=== PATIENT | male | born 1965 | race Caucasian/White ===

== ENCOUNTER 2024-10-21 10:47 | Emergency (ER) | payer BC, SELFPAY ==
[2024-10-21 10:48] VITALS: BP 156/106; PULSE 80; RESP 16; TEMP 36.8; O2SAT 99; BMI 31.5
--- NOTE | 2024-10-21 11:55 | EDS_ITS ---
HPI History of Present Illness Chief Complaint: Nosebleed Informant: patient Narrative Narrative: Spontaneous nosebleed that started about 3 hours ago. Stopped at 1 point but then restarted. He cannot tell if when he was holding pressure was helping. He states when he was doing it he felt like blood was building up inside of his head. He was swallowing some blood. He was also tilting his head back. He thinks when he for started noticing blood running out of his nose it was on the right side, but other than that he has bleeding out of both sides at the same time every time. No systemic symptoms. No blood thinners. No recent cold symptoms or blowing his nose or injury. PFSH PFSH Medical History no medical history no medical history Home Medications ?Medication ?Instructions ?Recorded ?Last Taken ?Type NK 10/21/24 Unknown History Allergy/AdvReac Type Severity Reaction Status Date / Time codeine Allergy Vomiting Verified 10/21/24 10:50 Social History Smoking Status: Current every day smoker tobacco type: cigarettes ROS ROS ED Constitutional Constitutional ED: Denies chills or fever(s) ENT ENT ED: Reports epistaxis; Denies facial pain Cardiovascular Cardiovascular: Denies chest pain, lightheadedness or syncope Respiratory/Chest Respiratory/Chest: Denies cough EXAM Physical Exam Const Vital Signs: 10/21/24 10:48 10/21/24 13:56 10/21/24 13:56 Temperature 98.2 F 98.0 F Temperature Source Temporal Pulse Rate 80 63 63 Respiratory Rate 16 18 18 Blood Pressure 156/106 H 140/82 H 140/82 H Blood Pressure Mean 122 101 101 Pulse Ox 99 97 97 Oxygen Delivery Method Room Air Room Air Positive well nourished and well developed General Appearance ED: well developed and NAD HEENT Reports moist mucous membranes HEENT Narrative: No active bleeding. No blood in the posterior pharynx or active bleeding. There is residual blood at the right nasal septum, possible pinpoint source but not actively bleeding, nothing on the left. Patient is able to breathe and move air well through each naris. normocephalic and atraumatic Eyes PERRL and EOMs intact bilaterally Neck full ROM and supple Resp normal respiratory effort and clear to auscultation bilaterally Cardio regular rate, regular rhythm and no murmurs Back/Spine General Back: other FROM Extremity normal to inspection Neuro oriented x3, CN's II-XII intact bilaterally and no sensory deficits noted Sensorium / Orientation: awake and alert Motor Exam: strength 5/5 throughout Skin no rashes or lesions noted and no wounds MDM MDM MDM Narrative Medical decision making narrative: Blood pressure in the 150s he states this is high for him, however I am not sure this is high enough to have caused his acute nosebleed. He is on no antiplatelet or anticoagulants. He had no recurrence of active bleeding while in the emergency department. I did instill 1 cc each nostril of Itzel solution, followed by a pledget into the right naris which was more suspect than the left side. This is not acting like a posterior bleed. On reexamination after 20 minutes of this, there is no active bleeding, the left side is clear, there is a prominent blood vessel in the anterior right septum that does not appear having had recent bleeding, but there is an area more posterior along the septum that is a little on the white discoloration with a part of it that looks like maybe it was because. Therefore I cauterized this with silver nitrate, he tolerated well, no recurrent bleeding, stable for discharge and outpatient blood pressure follow-up/recheck he is comfortable with that plan we discussed reasons to return. Discharge Plan Triage Chief Complaint: Nosebleed ED Provider: Jimmy Malcolm Dx/Rx/DC Orders Clinical Impression: Acute anterior epistaxis, Episode of hypertension Instructions: ED Epistaxis (Adult) Prescriptions: No Action NK Primary Care Provider: Care Physician,No Primary Referrals: Care Physician,No Primary [Primary Care Provider] - Doctor,Your [Non-Staff] - 1 Week (Follow-up for blood pressure recheck) Print Language: [place] Disposition Disposition: Home, Self Care Discharge Date/Time: 10/21/24 14:03
[2024-10-21] MEDS: Mixture 30 ML Bottle TOPICAL (12:16)
[2024-10-21] MEDS: Silver Nitrate (BKC) 1 EACH TOPICAL (13:53)
[2024-10-21 13:56] VITALS: BP 140/82; PULSE 63; RESP 18; TEMP 36.7; O2SAT 97
== END 2024-10-21 14:03 | disposition home or self-care (01) ==
PROVIDERS: Emergency Provider Emergency Medicine; Visit Provider Emergency Medicine
DX: R04.0 Epistaxis (principal); I10 Essential (primary) hypertension; F17.210 Nicotine dependence, cigarettes, uncomplicated
CPT/HCPCS: 30901; 99282